=== PATIENT | male | born 1980 | race Hispanic/Latino ===

== ENCOUNTER 2017-01-05 21:02 | Emergency (ER) | payer OTHER ==
--- NOTE | 2017-01-05 21:53 | RADIOLOGY REPORT ---
EXAMINATION: XR CHEST CLINICAL INFORMATION: Palpitations. COMPARISON: None TECHNIQUE: 2 views of the chest were obtained. FINDINGS: No significant abnormality is noted involving the heart, lungs, mediastinum, bony thorax or soft tissues. IMPRESSION: No evidence of CHF.
[2017-01-05 22:22] LABS: ABSOLUTE BASOPHIL COUNT 0 /CUMM (0.0-0.2); ABSOLUTE EOSINOPHIL COUNT 0.5 /CUMM (0.0-0.7); ABSOLUTE GRANULOCYTE CT 6.1 /CUMM (1.4-6.5); ABSOLUTE LYMPH COUNT 2.5 /CUMM (1.2-3.4); ABSOLUTE MONOCYTE COUNT 0.7 /CUMM (0.10-0.60); BASOPHIL % 0.4 % (0.0-2.0); EOSINOPHIL % 4.8 % (0-5); HEMATOCRIT 42.5 % (42-52); MEAN CORPUSCULAR HGB 30.1 PG (27.0-31.0); MEAN CORPUSCULAR HGB CONC 33.2 G/DL (33.0-37.0); MEAN CORPUSCULAR VOLUME 90.5 FL (80.0-94.0); PLATELET COUNT 282 /CUMM (130-400); RBC DISTRIBUTION WIDTH 13.3 % (11.5-14.5); WHITE BLOOD CELL COUNT 9.9 /CUMM (4.8-10.8)
--- NOTE | 2017-01-05 23:51 | ED CARDIAC/CP/PALPITATIONS ---
History of Present Illness General Chief Complaint: Palpitations Stated Complaint: PALPITATIONS, LEFT ARM STIFFNESS Source: patient, family, old records Exam Limitations: no limitations Vital Signs & Intake/Output Vital Signs & Intake/Output Vital Signs Date Time Temp Pulse Resp B/P Pulse O2 O2 Flow FiO2 Ox Delivery Rate 01/06 0020 98.0 92 18 150/80 97 Room Air 01/05 2316 95 16 151/80 01/05 2315 Room Air 01/054 98.1 98 16 154/96 96 Room Air Allergies Coded Allergies: No Known Allergies (01/05/17) Reconcile Medications Canagliflozin/Metformin HCl (Invokamet 50-1,000 MG Tablet) 50 MG-1,000 MG TABLET (Reported) Ergocalciferol (Vitamin D2) (Vitamin D2) 50,000 UNIT CAPSULE 1 CAP PO QW ( Reported) Lisinopril 20 MG TABLET 1 TAB PO DAILY HTN (Reported) Triage Note: TRIAGE; PT TO ED WITH FEELING OF CP/PALPITATIONS X45 MINS AGO. STATES HE WAS SLURRING HIS WORDS WHEN IT OCCURED. STATES THE SENSATION SUBSIDED NOW. STATES CURRENTLY HE FEELS REALLY TIRED. DENIES ANY CP/SOB AT THIS TIME. Triage Nurses Notes Reviewed? yes Onset: Just prior to arrival Duration: minute(s):, constant, gone now Timing: recent history Quality/Severity: moderate, palpitations Location: substernal Radiation: no radiation Activities at Onset: activity Prior Chest Pain/Card Workup: no prior chest pain Modifying Factors: Improves With: rest. Nitro Today/Relief: no nitro taken today Aspirin Today: no aspirin today Associated Symptoms: weakness HPI: Prior to admission at [facility] patient had episode of palpitations described as rapid heartbeat associated with weakness confusion. It resolved after a few minutes. He denies fever chills nausea vomiting diarrhea abdominal pain chest pain shortness of breath headache dysuria rash bleeding. Past History Travel History Traveled to [place] past 21 day No Medical History Any Pertinent Medical History? see below for history Cardiovascular: hypertension Endocrine: diabetes Surgical History Surgical History: non-contributory Psychosocial History What is your primary language Kinyarwanda Tobacco Use: Never used Family History Hx Contributory? No Review of Systems Review of Systems Constitutional: Reports: no symptoms. EENTM: Reports: no symptoms. Respiratory: Reports: no symptoms. Cardiovascular: Reports: see HPI, palpitations. GI: Reports: no symptoms. Genitourinary: Reports: no symptoms. Musculoskeletal: Reports: no symptoms. Skin: Reports: no symptoms. Neurological/Psychological: Reports: no symptoms. Hematologic/Endocrine: Reports: no symptoms. Immunologic/Allergic: Reports: no symptoms. All Other Systems: Reviewed and Negative Physical Exam Physical Exam General Appearance: well developed/nourished, alert, awake, anxious, mild distress, obese Head: atraumatic, normal appearance Eyes: Bilateral: normal appearance, PERRL, EOMI. Ears, Nose, Throat: normal pharynx, normal ENT inspection Neck: normal inspection, supple, full range of motion, no midline tenderness Respiratory: normal breath sounds, chest non-tender, no respiratory distress, quiet respiration, lungs clear Cardiovascular: regular rate/rhythm, normal peripheral pulses, norml femoral pulses equa Peripheral Pulses: 4+ carotid (R), 4+ carotid (L) Gastrointestinal: normal bowel sounds, soft, non-tender, no organomegaly Back: normal inspection, normal range of motion Extremities: normal inspection, normal capillary refill, normal range of motion, no edema Neurologic/Psych: no motor/sensory deficits, awake, alert, oriented x 3, normal gait, normal mood/affect Reflexes: 2+: bicep (R), bicep (L). Skin: intact, normal color, warm/dry Lymphatic: no anterior cervical sera Core Measures ACS in differential dx? Yes Severe Sepsis Present: No Septic Shock Present: No Progress Differential Diagnosis: AMI, atrial fibrillation, PSVT Plan of Care: Orders Procedure Date/time Status TROPONIN LEVEL 01/05 2115 Complete MAGNESIUM 01/05 2115 Complete COMPREHENSIVE METABOLIC PANEL 01/05 2115 Complete CHOLESTEROL 01/05 2115 Complete CBC WITHOUT DIFFERENTIAL 01/05 2115 Complete EKG 01/05 2104 Active Laboratory Tests 01/05/176: Anion Gap 9, Estimated GFR > 60, BUN/Creatinine Ratio 17.1, Glucose 177 H, Calcium 8.7, Magnesium 1.8, Total Bilirubin 0.6, AST 74 H, ALT 88 H, Alkaline Phosphatase 102, Troponin I < 0.01, Total Protein 7.5, Albumin 3.7, Globulin 3.8 , Albumin/Globulin Ratio 1.0 L, Cholesterol 166, CBC w Diff NO MAN DIFF REQ, RBC 4.70, MCV 90.5, MCH 30.1, RDW 13.3, MPV 7.0 L, Gran % 62.0, Lymphocytes % 25.6, Monocytes % 7.2, Eosinophils % 4.8, Basophils % 0.4, Absolute Granulocytes 6.1, Absolute Lymphocytes 2.5, Absolute Monocytes 0.7 H, Absolute Eosinophils 0.5, Absolute Basophils 0, PUBS MCHC 33.2 Initial ED EKG: normal axis, normal intervals, normal p-waves, normal QRS complex, normal sinus rhythm, no ST T wave changes Departure Departure Time of Disposition: 2349 Disposition: HOME OR SELF CARE Condition: Stable Clinical Impression Primary Impression: Palpitations Referrals: BERNARDO MCKENNA MD (PCP/Family) ESHA PHELPS,CRYSTAL Forman Call for cardiology follow up Departure Forms: Customer Survey General Discharge Information RELEASE- WORK Critical Care Note Critical Care Note Critical Care Time: non-applicable
[2017-01-06 00:20] VITALS: BP 150/80
[2017-01-06] MEDS ORDERED: LISINOPRIL20 M1 PO (00:20)
[2017-01-06] MEDS ORDERED: VITAMIN D250000 UNIT PO (00:20)
[2017-01-06] MEDS ORDERED: INVOKAMET 50-11 EACH (00:20)
== END 2017-01-06 00:21 ==
LOC: ERH 21:02
PROVIDERS: Emergency Medicine
DX: R00.2 Palpitations (principal)
CPT/HCPCS: 93005; 93010